=== PATIENT | male | born 1975 | race Caucasian/White ===

== ENCOUNTER 2021-01-15 12:25 | Emergency (ER) | payer OTHER ==
[~2021-01-15] VITALS: Ht 182.9 cm; Wt 122.5 kg
== END 2021-01-15 17:26 | disposition home or self-care (01) ==
LOC: ER 12:25
DX: R10.84 Generalized abdominal pain (principal)

== ENCOUNTER 2024-11-29 17:45 | Emergency (ER) | payer OTHER ==
[~2024-11-29] VITALS: Ht 182.9 cm; Wt 127.0 kg
[2024-11-29] MEDS ORDERED: ADULT LOW DOSE81 M1 (18:10)
[2024-11-29 18:49] LABS: HEMATOCRIT 45.8 % (39.0-48.0); HEMOGLOBIN 15.2 g/dL (13-16.00); MEAN CELL VOLUME 79.8 fL (80.0-100.00); MEAN CORPUSCULAR HEMOGLOBIN 26.5 pg (27.00-32.0); MEAN CORPUSCULAR HGB CONC 33.2 g/dl (32.0-36.0); PLATELET COUNT 167 K/uL (150-450); RED BLOOD COUNT 5.74 M/uL (4.00-6.00); RED CELL DISTRIBUTION WIDTH 14.2 % (11.5-14.5)
[2024-11-29 19:10] LABS: BILIRUBIN TOTAL 0.35 mg/dL (0.3-1.2); CALCIUM 9.1 mg/dL (8.5-10.1); CREATININE SERUM 1.34 mg/dL (0.70-1.30); GFR 57.14; GLOBULINA 3.8 G/DL (2.4-3.5); POTASSIUM 3.87 mEq/L (3.5-5.1); TOTAL PROTEIN 7.8 gm/dL (6.4-8.2)
== END 2024-11-29 19:52 | disposition home or self-care (01) ==
LOC: ER 17:46
DX: G47.30 Sleep apnea, unspecified (principal); E66.9 Obesity, unspecified; R53.81 Other malaise

== ENCOUNTER 2025-10-30 14:37 | Emergency (ER) | payer OTHER ==
[~2025-10-30] VITALS: Ht 182.9 cm; Wt 122.5 kg
[~2025-10-30 14:37] MED LIST: ADULT LOW DOSE81 M1
[2025-10-30 16:00] VITALS: BP 122/85; O2SAT 99
[2025-10-30] MEDS ORDERED: DIPHENHYDRAMINE HCL 50 MG/ML VIAL 1ML IV ONE (16:30)
[2025-10-30] MEDS ORDERED: KETOROLAC TROMETHAMINE 30 MG VIAL IV ONE (16:30)
[2025-10-30] MEDS ORDERED: METOCLOPRAMIDE HCL 10 MG in DEXTROSE 5 % IN WATER 50 ML IV ONE (16:30)
[2025-10-30] MEDS ORDERED: 0.9 % SODIUM CHLORIDE 1,000 ML IV SCH (16:30)
[2025-10-30] MEDS ORDERED: KETOROLAC TROMETHAMINE 30 MG VIAL ONE (18:57)
[2025-10-30] MEDS ORDERED: DIPHENHYDRAMINE HCL 50 MG/ML VIAL 1ML ONE (18:57)
[2025-10-30] MEDS ORDERED: METOCLOPRAMIDE HCL 5 MG/ML VIAL ONE (18:57)
[2025-10-30 20:06] LABS: BASO % 0.5 % (0.1-1.2); EOS # 0.12 (0.04-0.54); EOS % 1.9 % (0.7-7.0); LYMPH # 2.29 (1.18-3.74); LYMPH % 36.6 % (19.3-53.1); MEAN PLATELET VOLUME 12.20 fl (9.4-12.4); MONO # 0.49 (0.24-0.82); MONO % 7.8 % (4.7-12.5); NEUT # 3.32 (1.56-6.13); NEUT % 53.0 % (34.0-71.1); RED CELL DISTRIBUTION WIDTH 14.0 % (11.6-14.4)
[2025-10-30 20:58] LABS: ALT/SGPT 51.0 U/L (12-78); AST/SGOT 25.0 U/L (15-37); BILIRUBIN TOTAL 0.37 mg/dL (0.3-1.2); BUN CREA RATIO 17.0 (7.0-25.0); CREATININE SERUM 1.24 mg/dL (0.70-1.30); GFR 62.22; GLOBULINA 4.0 G/DL (2.4-3.5); GLUCOSE FASTING 117.0 mg/dL (65-100); OSMOLALITY SERUM 287.0 MOSM/KG (275-295)
== END 2025-10-30 23:10 | disposition home or self-care (01) ==
LOC: ER 14:38
PROVIDERS: General Practice
DX: G43.809 Other migraine, not intractable, without status migrainosus (principal)